=== PATIENT | female | born 1965 | race Caucasian/White ===

== ENCOUNTER 2021-02-05 14:09 | Emergency (ER) | payer OTHER, SELFPAY ==
[2021-02-05 14:17] VITALS: BP 143/65; PULSE 86; RESP 16; TEMP 36.8; O2SAT 98; BMI 30.7
--- NOTE | 2021-02-05 14:21 | DI.RAD.S_ITS ---
PROCEDURE: XR KNEE RT 3V INDICATIONS: felt pop pain after injury TECHNIQUE: 3 views of the knee were acquired. COMPARISON: None. FINDINGS: Bones: No fractures or dislocations. No suspicious bony lesions. Mild medial compartment joint space narrowing. Soft tissues: No joint effusion. No suspicious soft tissue calcifications. IMPRESSION: Mild joint space narrowing. No fracture or dislocation. No joint effusion. Approved by: Timoteo Huntley M.D. on 02/05/2021 at 14:35
--- NOTE | 2021-02-05 14:55 | ED.LOWEXIN ---
HPI - Extremity Injury (Lower) General Chief Complaint: Extremity Injury, Lower Stated Complaint: Pain in right knee Time Seen by Provider: 02/05/21 14:27 Source: patient Mode of arrival: Ambulatory Limitations: no limitations History of Present Illness HPI Narrative: The patient has right posterior knee pain. She was running up stairs 2 days ago, she felt the pop in her knee. She has ongoing pain in her left knee. She is ambulatory. There is no swelling. There is no obvious deformity. She has no chronic knee problems. She is getting little relief with ibuprofen. She has been applying ice packs. She has no numbness or weakness in the right lower extremity. She denies back pain or hip pain. She has no acute illness, no other complaints. Related Data Previous Rx's Medication Instructions Recorded methocarbamol 750 mg tablet 750 mg PO Q6H PRN #40 tab 02/05/21 Allergies Allergy/AdvReac Type Severity Reaction Status Date / Time Penicillins Allergy Verified 02/05/21 14:17 Review of Systems Review of Systems ROS Unobtainable: All systems reviewed & are unremarkable except as noted in HPI and below Patient History Medical History (Updated 02/05/21 @ 15:28 by Jatin Escobar MD) Healthy adult Social History Smoking Status: Never smoker Smoking Status: Never smoker alcohol intake frequency: holidays/special occasions only Substance Use Type: marijuana Exam Initial Vital Signs Initial Vital Signs: Vital Signs Temperature 98.3 F 02/05/21 14:17 Pulse Rate 86 02/05/21 14:17 Respiratory Rate 16 02/05/21 14:17 Blood Pressure 143/65 H 02/05/21 14:17 Pulse Oximetry 98 02/05/21 14:17 Const General: cooperative, healthy appearing and comfortable Skin General: no rashes or lesions noted Neuro General: patient alert, patient awake, patient oriented x3 and other (Right leg motor and sensory exam is normal) Extrem Other: Posterior right knee pain, consistent with a hamstring strain. Range of motion is 0-90 degrees, no right knee edema. No MCL or LCL tenderness or laxity. Anterior drawer sign is negative. Right calf is nontender. There is no edema to calf. Right ankle foot is nontender Procedures Orthopedic Splinting/Casting Injury #1: Side: right Lower Extremity Injury Location: knee Lower Extremity Immobilizer: knee immobilizer Post splinting neuro exam: intact Post splinting vascular exam: intact Placed by: Nursing Course Orders Ordered: ED Orders 02/05/21 14:21 XR knee RT 3V Stat Discontinued Medications Methocarbamol (Methocarbamol 500 Mg Tablet) 750 mg PO NOW ONE Stop: 02/05/21 15:20 Last Admin: 02/05/21 15:28 Dose: 750 mg Documented by: Ondansetron HCl (Ondansetron 4 Mg/2 Ml Inj) 4 mg IV NOW ONE Stop: 02/05/21 15:01 Vital Signs Vital signs: Vital Signs - 8 hr 02/05/21 14:17 Temperature 98.3 F Pulse Rate 86 Respiratory Rate 16 Blood Pressure 143/65 H Pulse Oximetry 98 MDM - Extremity Injury (Lower) Imaging Data Right knee x-ray: My Impression: No acute bony injury. Discharge Plan Departure Patient Disposition: Home Clinical Impression: Muscle strain of right knee Qualifiers: Encounter type: initial encounter Qualified Code(s): S86.911A - Strain of unspecified muscle(s) and tendon(s) at lower leg level, right leg, initial encounter Instructions: DI for Knee Sprain Activity Restrictions/Additional Instructions: Advil 3 tablets every 6 hours as needed for pain. Robaxin every 6 hours for spasm. Take the medications at the same time. A knee splint has been applied. Use this when up and about. The splint come come off for rest, bathing, etc. Wean from the splint as tolerated. Follow-up with your doctor if not improved within 3 weeks. Return here if necessary. Prescriptions: New methocarbamol 750 mg tablet 750 mg PO Q6H PRN (Reason: spasms) Qty: 40 RF: 0
[2021-02-05] MEDS: methocarbamoL 500 MG TABLET 750 MG PO (15:28)
== END 2021-02-05 15:43 | disposition home or self-care (01) ==
PROVIDERS: Emergency Provider Emergency Medicine
DX: S86.911A Strain of unspecified muscle(s) and tendon(s) at lower leg level, right leg, initial encounter (principal); X50.9XXA Other and unspecified overexertion or strenuous movements or postures, initial encounter
CPT/HCPCS: 73562; 99283